=== PATIENT | male | born 1990 | race Two or more races ===

== ENCOUNTER 2017-02-20 21:08 | Emergency (ER) | payer SELFPAY ==
[~2017-02-20] VITALS: Ht 165.1 cm; Wt 74.8 kg
--- NOTE | 2017-02-20 22:16 | PHYS DOC ---
Past Medical History Past Medical History: Asthma Past Surgical History: No Surgical History Alcohol Use: None Drug Use: None Adult General Chief Complaint Chief Complaint: GI PROBLEM HPI HPI Patient is a 27 year old male who presents with L chest wall pain. Patient reports he was lifting a heavy board at work tonight when he felt something "pop " in his L lateral lower chest. He has been having pain at that site since. No SOB. Has not taken anything for symptoms prior to coming to ED. No other acute complaints. Review of Systems Review of Systems Constitutional: Denies fever or chills Respiratory: Denies cough or shortness of breath Cardiovascular: Denies anterior chest pain GI: Denies abdominal pain, nausea, vomiting, bloody stools or diarrhea Musculoskeletal: L lateral lower chest wall pain. Denies back pain or joint pain Neurologic: Denies headache, focal weakness or sensory changes Current Medications Current Medications Current Medications Medications (Trade) Dose Ordered Sig/Stephie Start Time Stop Time Status Last Admin Dose Admin Ketorolac Tromethamine (Toradol) 30 mg 1X ONCE 02/20/17 22:30 02/20/17 22:31 DC 02/20/17 22:25 30 MG Oxycodone/ Acetaminophen (Percocet 5/325) 2 tab 1X ONCE 02/20/17 22:30 02/20/17 22:31 DC 02/20/17 22:24 2 TAB Allergies Allergies Allergies Coded Allergies Type Severity Reaction Last Updated Verified Penicillins Allergy Intermediate HIVES 02/20/17 Yes Physical Exam Physical Exam Constitutional: Well developed, well nourished, no acute distress, non-toxic appearance HENT: Normocephalic, atraumatic, bilateral external ears normal Eyes: EOMI, conjunctiva normal, no discharge Neck: Normal range of motion, no stridor Cardiovascular: Heart rate normal, regular rhythm, no murmur Lungs & Thorax: Bilateral breath sounds clear to auscultation; L lateral chest wall visually unremarkable with no deformity noted; point TTP over lower costal margin on L Abdomen: Bowel sounds normal, soft, non-distended, no TTP Skin: Warm, dry, no erythema, no rash Extremities: No obvious deformity, no edema Neurologic: Alert and oriented X 3, no gross deficits noted Current Patient Data Vital Signs Vital Signs Date Time Temp Pulse Resp B/P Pulse Ox O2 Delivery O2 Flow Rate FiO2 02/20/17 23:50 72 16 121/82 96 Room Air 02/20/17 21:23 98.0 98.0 EKG EKG EKG (my read): sinus rhythm, rate 58, normal axis, nonspecific ST changes Radiology/Procedures Radiology/Procedures X-ray L ribs and PA chest (my read): No acute abnormality Course & Med Decision Making Course & Med Decision Making Pertinent Labs and Imaging studies reviewed. (See chart for details) Patient is 27 year old male who presents with pain at L costal margin after lifting heavy piece of wood at work. Likely costal cartilage or muscle injury. Will obtain x-rays of L ribs and PA chest to evaluate. Oral pain meds and IM toradol ordered for relief of pain. X-rays without acute abnormality per my read. Discussed results with patient, whose pain is much improved at this time. I provided him with incentive spirometer and counseled him on its use. Will discharge home with rx for pain meds, instructions for follow up, and return precautions. Dragon Disclaimer Dragon Disclaimer This electronic medical record was generated, in whole or in part, using a voice recognition dictation system. Departure Departure Impression: Primary Impression: Rib injury Disposition: HOME, SELF-CARE Condition: IMPROVED Referrals: NO PCP (PCP) Patient Instructions: Rib Contusion Additional Instructions: Thank you for allowing us to provide care today in the Emergency Department. Take the provided medication as directed. Use caution after taking the narcotic pain medication as it can make you drowsy. Do not drive, use heavy machinery, or use power tools after taking this medication. Use the incentive spirometer (breathing device) as you were shown. Schedule a follow up appointment with your primary care doctor. Return promptly to the Emergency Department if you develop any new or concerning symptoms. Scripts Naproxen 500 Mg Tablet1 Tab PO BID PRN PAIN #30 TAB Prov:BRENNA BARCENAS MD 02/20/17 Hydrocodone/Apap 5-325 ([place] 5-325 Tablet)1 Each Tablet1-2 Tab PO PRN Q6HRS PRN PAIN #25 TAB Prov:BRENNA BARCENAS MD 02/20/17 BRENNA BARCENAS MD Feb 20, 2017 22:16
[2017-02-20] MEDS ORDERED: OXYCODONE/APAP 5/325 TABLET. PO ONE (22:30)
[2017-02-20] MEDS ORDERED: KETOROLAC TROMETHAMINE 30 MG/ML SYRINGE. IM ONE (22:30)
[2017-02-20] MEDS ORDERED: HYDR-971 PO (23:28)
[2017-02-20] MEDS ORDERED: NAPR500T3 PO (23:28)
[2017-02-20 23:50] VITALS: BP 121/82
--- NOTE | 2017-02-21 07:01 | EKG ---
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
--- NOTE | 2017-02-21 07:47 | RAD ---
Indication left-sided rib pain. A single view of the chest was obtained as well as films targeted left ribs. No prior imaging is available. The heart, pulmonary vessels and mediastinum appear normal. The lungs are clear. No pleural fluid or pneumothorax is seen. Films of left ribs appear unremarkable. IMPRESSION: Normal single view of the chest. Normal plain films left rib
== END 2017-02-20 23:55 | disposition home or self-care (01) ==
LOC: ER 21:08
DX: S29.9XXA Unspecified injury of thorax, initial encounter (principal); J45.909 Unspecified asthma, uncomplicated; Z88.0 Allergy status to penicillin; X58.XXXA Exposure to other specified factors, initial encounter; Y93.F2 Activity, caregiving, lifting; Y92.69 Other specified industrial and construction area as the place of occurrence of the external cause; Y99.8 Other external cause status
CPT/HCPCS: 71101; 93005; 96372; 99284; J1885

== ENCOUNTER 2019-06-27 08:24 | Emergency (ER) | payer SELFPAY ==
[~2019-06-27] VITALS: Ht 165.1 cm; Wt 73.5 kg
[~2019-06-27 08:24] MED LIST: HYDR-3164 PO; NAPR-514 PO
[2019-06-27 08:31] VITALS: BP 163/98
--- NOTE | 2019-06-27 08:40 | PHYS DOC ---
Past Medical History Past Medical History: Asthma Past Surgical History: No Surgical History Alcohol Use: None Drug Use: None Adult General Chief Complaint Chief Complaint: CHEST PAIN HPI HPI 29-year-old male presents to ER via POV for complaints of mid chest pain which started yesterday. Patient states he has had a nonproductive cough. Pt denies fever, neck or back pain, or abd pain. Pt reports he couldn't sleep last night d/t pain/cough. Pt reports he had some lt arm pain- denies injury/heavy lifting. Pt reports he quit smoking over 3 mo. ago. Patient denies any recent travel. Pt reports mom has HTN otherwise no other family cardiac hx. Review of Systems Review of Systems Constitutional: Denies fever or chills [] Eyes: Denies change in visual acuity, redness, or eye pain [] HENT: Denies nasal congestion or sore throat [] Respiratory: Denies shortness of breath. Reports nonprod. cough Cardiovascular: Reports mid CP GI: Denies abdominal pain, nausea, bloody stools or diarrhea. Reports 1 episode of vomiting yest. : Denies dysuria or hematuria [] Musculoskeletal: Denies back/neck pain or joint pain [] Integument: Denies rash or skin lesions [] Neurologic: Denies headache, focal weakness or sensory changes [] All other systems were reviewed and found to be within normal limits, except as documented in this note. Current Medications Current Medications Current Medications Medications (Trade) Dose Ordered Sig/Stephie Start Time Stop Time Status Last Admin Dose Admin Prednisone (Prednisone) 50 mg 1X ONCE 06/27/19 09:00 06/27/19 09:01 DC 06/27/19 08:47 50 MG Allergies Allergies Allergies Coded Allergies Type Severity Reaction Last Updated Verified Penicillins Allergy Intermediate HIVES 02/20/17 Yes Physical Exam Physical Exam Constitutional: Well developed, well nourished, no acute distress, non-toxic appearance. [] HENT: Normocephalic, atraumatic, oropharynx moist, nose normal. [] Eyes: Pupils equal, conjunctiva normal, no discharge. [] Neck: Normal range of motion, no tenderness, supple, no stridor. [] Cardiovascular: Heart rate regular rhythm, no murmur [] Lungs & Thorax: Bilateral breath sounds clear to auscultation- resp. equal/nonlabored. Mid chest pain reproducible on palp. No crepitus/deformity Abdomen: Bowel sounds normal, soft, no tenderness, no masses, no pulsatile masses. [] Skin: Warm, dry, no erythema, no rash. [] Back: No tenderness, no CVA tenderness. [] Extremities: No tenderness, no cyanosis, no clubbing, ROM intact, no edema. [] Neurologic: Alert and oriented X 3, normal motor function, normal sensory fun ction, no focal deficits noted. [] Psychologic: Affect normal, judgement normal, mood normal. [] Current Patient Data Vital Signs Vital Signs Date Time Temp Pulse Resp B/P (MAP) Pulse Ox O2 Delivery O2 Flow Rate FiO2 06/27/19 08:31 98.2 163/98 (119) 97 98.2 Lab Values Laboratory Tests Test 06/27/19 08:40 06/27/19 08:45 White Blood Count 7.0 x10^3/uL (4.0-11.0) Red Blood Count 4.00 x10^6/uL (4.30-5.70) L Hemoglobin 14.6 g/dL (13.0-17.5) Hematocrit 41.1 % (39.0-53.0) Mean Corpuscular Volume 103 fL (79-100) H Mean Corpuscular Hemoglobin 37 pg (25-35) H Mean Corpuscular Hemoglobin Concent 36 g/dL (31-37) Red Cell Distribution Width 12.1 % (11.5-14.5) Platelet Count 261 x10^3/uL (140-400) Neutrophils (%) (Auto) 48 % (31-73) Lymphocytes (%) (Auto) 43 % (24-48) Monocytes (%) (Auto) 6 % (0-9) Eosinophils (%) (Auto) 3 % (0-3) Basophils (%) (Auto) 1 % (0-3) Neutrophils # (Auto) 3.3 x10^3/uL (1.8-7.7) Lymphocytes # (Auto) 3.0 x10^3/uL (1.0-4.8) Monocytes # (Auto) 0.4 x10^3/uL (0.0-1.1) Eosinophils # (Auto) 0.2 x10^3/uL (0.0-0.7) Basophils # (Auto) 0.0 x10^3/uL (0.0-0.2) Sodium Level 141 mmol/L (136-145) Potassium Level 3.8 mmol/L (3.5-5.1) Chloride Level 101 mmol/L (98-107) Carbon Dioxide Level 27 mmol/L (21-32) Anion Gap 13 (6-14) Blood Urea Nitrogen 10 mg/dL (8-26) Creatinine 0.9 mg/dL (0.7-1.3) Estimated GFR (Cockcroft-Gault) 99.1 BUN/Creatinine Ratio 11 (6-20) Glucose Level 103 mg/dL (70-99) H Calcium Level 9.5 mg/dL (8.5-10.1) Magnesium Level 2.2 mg/dL (1.8-2.4) Total Bilirubin 0.7 mg/dL (0.2-1.0) Aspartate Amino Transferase (AST) 25 U/L (15-37) Alanine Aminotransferase (ALT) 44 U/L (16-63) Alkaline Phosphatase 95 U/L (46-116) Troponin I Quantitative < 0.017 ng/mL (0.000-0.055) Total Protein 8.2 g/dL (6.4-8.2) Albumin 4.4 g/dL (3.4-5.0) Albumin/Globulin Ratio 1.2 (1.0-1.7) Urine Collection Type Unknown Urine Color Yellow Urine Clarity Clear Urine pH 6.5 Urine Specific [place] 1.010 Urine Protein Negative mg/dL (NEG-TRACE) Urine Glucose (UA) Negative mg/dL (NEG) Urine Ketones (Stick) Negative mg/dL (NEG) Urine Blood Negative (NEG) Urine Nitrite Negative (NEG) Urine Bilirubin Negative (NEG) Urine Urobilinogen Dipstick 0.2 mg/dL (0.2 mg/dL) Urine Leukocyte Esterase Negative (NEG) Urine RBC 0 /HPF (0-2) Urine WBC 0 /HPF (0-4) Urine Squamous Epithelial Cells Few /LPF Urine Bacteria 0 /HPF (0-FEW) Laboratory Tests 06/27/19 08:40 Laboratory Tests 06/27/19 08:40 EKG EKG EKG obtained 06/27/19 at [address] Lombardo Sinus rhythm PACs Incomplete Rt BBB Rate 56 No STEMI Radiology/Procedures Radiology/Procedures PROCEDURE: CHEST PA & LATERAL Chest radiograph 06/27/2019 8:32 AM INDICATION: Chest pain, left shoulder and neck pain COMPARISON: None available TECHNIQUE: Frontal and lateral views of the chest are provided. FINDINGS: The cardiomediastinal silhouette is within normal limits. There are no pleural effusions. There is no pulmonary vascular congestion. There is no pneumothorax. The lungs are clear. No significant osseous abnormality is identified. IMPRESSION: No acute cardiopulmonary process. Electronically signed by: Nikkie Carver MD (06/27/2019 9:07 AM) [facility] DICTATED and SIGNED BY: NIKKIE CARVER MD DATE: 06/27/19 09 Course & Med Decision Making Course & Med Decision Making Pertinent Labs and Imaging studies reviewed. (See chart for details) 0915: Pt was evaluated in the ER for complaints of mid chest pain. Patient has history of asthma reports he has been coughing and he has not had his inhaler for the past 1-2 years. Chest x-ray was obtained with no acute findings. Labs/UA unremarkable. EKG with no acute ST elevation or STEMI and troponin was negative. Patient with no family history of cardiac issues. Patient reports following prednisone his pain has improved. Patient is in no visible distress with equal nonlabored respirations. Discussed plans for home discharge with prescription for inhaler and prednisone. Patient encouraged to increase fluid intake. Patient advised on need to follow-up with his primary care physician if symptoms persist or with concerns. Education provided on signs and symptoms to return to ER for and patient is comfortable with home discharge plan as discussed. HEART score 0. Dragon Disclaimer Dragon Disclaimer This electronic medical record was generated, in whole or in part, using a voice recognition dictation system. Departure Departure Impression: Primary Impression: Chest pain Additional Impression: Cough Disposition: 01 HOME, SELF-CARE Condition: STABLE Referrals: NO PCP (PCP) Patient Instructions: Chest Pain (Nonspecific), Cough, Adult Additional Instructions: Tylenol and/or ibuprofen as needed for pain as directed on container. Drink plenty of fluids daily. If symptoms persist follow-up with your primary care physician for reevaluation and further care. Scripts Prednisone (PREDNISONE) 50 Mg Tablet 1 TAB PO DAILY, #4 TAB 0 Refills Start 06/28/19 Prov: GARY HERNANDEZ APRN 06/27/19 Albuterol Sulfate (Proair Hfa) 8.5 Gm Hfa.aer.ad 1 PUFF INH PRN Q6HRS PRN for COUGH, #1 INHALER 0 Refills Prov: GARY HERNANDEZ APRN 06/27/19 Problem Qualifiers GARY HERNANDEZ APRN Jun 27, 2019 08:40
[2019-06-27 08:51] LABS: BILIRUBIN,URINE NEGATIVE (NEG); CLARITY,URINE CLEAR; COLOR,URINE YELLOW; NITRITE,URINE NEGATIVE (NEG); PH,URINE 6.5; PROTEIN,URINE NEGATIVE (NEG-TRACE); UROBILINOGEN,URINE 0.2 mg/dL (0.2 mg/dL)
[2019-06-27 08:55] LABS: BASO % 1 % (0-3); EOS # 0.2 x10^3/uL (0.0-0.7); EOS % 3 % (0-3); HEMATOCRIT 41.1 % (39.0-53.0); HEMOGLOBIN 14.6 g/dL (13.0-17.5); LYMPH % 43 % (24-48); MEAN CORPUSCULAR HEMOGLOBIN 37 pg (25-35); MEAN CORPUSCULAR HGB CONC 36 g/dL (31-37); MEAN CORPUSCULAR VOLUME 103 fL (79-100); MONO # 0.4 x10^3/uL (0.0-1.1); MONO % 6 % (0-9); NEUT # 3.3 x10^3/uL (1.8-7.7); NEUT % 48 % (31-73); PLATELET COUNT 261 x10^3/uL (140-400); RED CELL DISTRIBUTION WIDTH 12.1 % (11.5-14.5)
[2019-06-27 08:59] LABS: CALCIUM 9.5 mg/dL (8.5-10.1); CREATININE 0.9 mg/dL (0.7-1.3); GFR 99.1; POTASSIUM 3.8 mmol/L (3.5-5.1)
[2019-06-27] MEDS ORDERED: predniSONE 10 MG TABLET PO ONE (09:00)
[2019-06-27 09:04] LABS: ALBUMIN 4.4 g/dL (3.4-5.0); ALBUMIN/GLOBULIN RATIO 1.2 (1.0-1.7); MAGNESIUM 2.2 mg/dL (1.8-2.4); TOTAL BILIRUBIN 0.7 mg/dL (0.2-1.0); TOTAL PROTEIN 8.2 g/dL (6.4-8.2)
[2019-06-27 09:06] LABS: BACTERIA,URINE 0 /HPF (0-FEW); RBC,URINE 0 /HPF (0-2); SQUAMOUS EPITHELIAL CELL,UR FEW /LPF; WBC,URINE 0 /HPF (0-4)
--- NOTE | 2019-06-27 09:10 | RAD ---
Chest radiograph 06/27/2019 8:32 AM INDICATION: Chest pain, left shoulder and neck pain COMPARISON: None available TECHNIQUE: Frontal and lateral views of the chest are provided. FINDINGS: The cardiomediastinal silhouette is within normal limits. There are no pleural effusions. There is no pulmonary vascular congestion. There is no pneumothorax. The lungs are clear. No significant osseous abnormality is identified. IMPRESSION: No acute cardiopulmonary process. Electronically signed by: Dolly Carver MD (06/27/2019 9:07 AM) [facility]
[2019-06-27] MEDS ORDERED: ALBU2.5V8 INH (09:25)
[2019-06-27] MEDS ORDERED: PRED50TA PO (09:25)
--- NOTE | 2019-06-28 06:50 | EKG ---
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
== END 2019-06-27 09:38 | disposition home or self-care (01) ==
LOC: ER 08:24
DX: R07.89 Other chest pain (principal); R05 Cough; R11.10 Vomiting, unspecified; J45.909 Unspecified asthma, uncomplicated; Z87.891 Personal history of nicotine dependence; Z88.0 Allergy status to penicillin
CPT/HCPCS: 36415; 71046; 80053; 81001; 83735; 84484; 85025; 93005; 99285; J7512